=== PATIENT | male | born 1980 | race Caucasian/White ===

== ENCOUNTER 2020-11-11 11:36 | Emergency (ER) | payer OTHER ==
[~2020-11-11] VITALS: Ht 190.5 cm; Wt 150.0 kg
--- NOTE | 2020-11-11 12:15 | NUR ---
Pt refuses to get undressed, he says the [employer] is coming to pick him up soon and they will want him dressed. 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 [employer] had searched him prior to transporting to hospital.
--- NOTE | 2020-11-11 12:32 | NUR ---
Garage doors down, sitter in line of site.
--- NOTE | 2020-11-11 12:43 | NUR ---
TASK RN: LAB AT BEDSIDE.
[2020-11-11 13:06] LABS: BASOPHILS % (AUTO) 1 % (0-1); EOSINOPHILS % (AUTO) 0 % (1-7); LYMPHOCYTES % (AUTO) 13 % (22-44); MEAN CORPUSCULAR HEMOGLOBIN 29.7 pg (27.5-34.5); MEAN CORPUSCULAR HGB CONC 34.2 g/dL (33.2-36.2); MEAN PLATELET VOLUME 9.7 fL (7.4-10.4); MONOCYTES % (AUTO) 8 % (2-9); NEUTROPHILS % (AUTO) 78 % (42-75); PLATELET COUNT 266 x10^3/uL (130-400); RED BLOOD COUNT 5.69 x10^6/uL (4.38-5.82); RED CELL DISTRIBUTION WIDTH 13.8 % (9.4-14.8)
[2020-11-11 13:07] LABS: ALANINE AMINOTRANSFERASE 62 U/L (12-78); ALBUMIN 4.8 g/dL (3.4-5.0); ANION GAP 10 mmol/L (5-15); CALCIUM 9.7 mg/dL (8.5-10.1); CHLORIDE 107 mmol/L (98-107); CREATININE 1.56 mg/dL (0.7-1.3); SALICYLATE LEVEL 1.8 mg/dL (2.8-20.0)
[2020-11-11 13:10] LABS: ALKALINE PHOSPHATASE 86 U/L (45-117); TOTAL PROTEIN 9.4 g/dL (6.4-8.2)
[2020-11-11] MEDS ORDERED: ARIPIPRAZOLE 15 MG TABLET PO SCH (15:00)
[2020-11-11] MEDS ORDERED: BUPROPION SR 100 MG TABLET PO SCH (15:00)
[2020-11-11] MEDS ORDERED: SERTRALINE 50MG TABLET PO SCH (15:00)
[2020-11-11] MEDS ORDERED: SERTRALINE 50MG TABLET ONE (15:06)
[2020-11-11] MEDS ORDERED: ARIPIPRAZOLE 5 MG TABLET ONE (15:06)
--- NOTE | 2020-11-11 15:12 | NUR ---
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 MEAL PROVIDED. SAFETY PRECAUTIONS IN PLACE.
--- NOTE | 2020-11-11 17:10 | NUR ---
Pt resting in bed, safety precautions in place.
--- NOTE | 2020-11-11 17:26 | NUR ---
pt aware of needed urine sample
[2020-11-11 18:45] LABS: AMPHETAMINE SCREEN, URINE Negative (Negative); BARBITURATE SCREEN, URINE Negative (Negative); BENZODIAZEPINE SCREEN, URINE Positive (Negative); CANNABINOID SCREEN, URINE Negative (Negative); COCAINE SCREEN, URINE Negative (Negative); METHADONE SCREEN, URINE Negative (Negative); OPIATE SCREEN, URINE Negative (Negative)
--- NOTE | 2020-11-11 18:47 | NUR ---
BEDSIDE REPORT FROM MATILDA CAPELLAN, TRANSFER OF CARE AT THIS TIME.
--- NOTE | 2020-11-11 20:01 | NUR ---
PT RESTING ON KARLSO ASTORGA RESP EVEN UNLABORED, SITTER IN SIGHT
--- NOTE | 2020-11-11 20:19 | NUR ---
PT PROVIDED BLANKETS HOWEVER PT REMAINS CAUTIOUS AND APPREHENSIVE WITH STAFF ONLY NODS TO RESPOND TO RN
--- NOTE | 2020-11-11 21:10 | NUR ---
PT RESTING ON KARLOS ASTORGA RESP EVEN UNLABORED, SITTER IN SIGHT
--- NOTE | 2020-11-11 22:19 | NUR ---
PT RESTING ON KARLOS ASTORGA RESP EVEN UNLABORED, SITTER IN SIGHT
--- NOTE | 2020-11-11 23:42 | NUR ---
PT SLEEPING ON GURNEY RESP EVEN UNLABORED NO NEEDS AT THIS TIME, SITTER REMAINS IN SIGHT.
--- NOTE | 2020-11-12 00:52 | NUR ---
PT RESTING ON GURKAITLYNN NADN RESP EVEN UNLABORED NO NEEDS AT THIS TIME. SITTER IN SIGHT
--- NOTE | 2020-11-12 01:43 | NUR ---
Packet faxed to [facility]. Self pay.
--- NOTE | 2020-11-12 02:03 | NUR ---
PT RESTING ON GURKAITLYNN NADN RESP EVEN UNLABORED NO NEEDS AT THIS TIME. SITTER IN SIGHT
--- NOTE | 2020-11-12 03:00 | NUR ---
PT RESTING ON GURKAITLYNN NADN RESP EVEN UNLABORED NO NEEDS AT THIS TIME. SITTER IN SIGHT
--- NOTE | 2020-11-12 04:00 | NUR ---
PT RESTING ON GURKAITLYNN NADN RESP EVEN UNLABORED NO NEEDS AT THIS TIME. SITTER IN SIGHT
--- NOTE | 2020-11-12 05:00 | NUR ---
PT RESTING ON GURKAITLYNN NADN RESP EVEN UNLABORED NO NEEDS AT THIS TIME. SITTER IN SIGHT
--- NOTE | 2020-11-12 06:27 | NUR ---
UNABLE TO DO SI REASSESSMENT DUE TO PT ONLY NODDING YES AND NO TO CERTAIN QUESTIONS PT REFUSES VS AT THIS TIME
--- NOTE | 2020-11-12 06:27 | NUR ---
PT RESTING ON GURKAITLYNN NADN RESP EVEN UNLABORED NO NEEDS AT THIS TIME. SITTER IN SIGHT
--- NOTE | 2020-11-12 07:04 | NUR ---
REPORT RECEIVED, CARE ASSUMED. PT SLEEPING IN SECURE ROOM WITH SITTER AT DOOR. MEAL TRAY REQUESTED FROM DIETARY
--- NOTE | 2020-11-12 08:05 | NUR ---
PT MOSTLY SLEEPING. CONT IN SECURE ROOM WITH SITTER AT DOOR.
[2020-11-12] MEDS ORDERED: ARIPIPRAZOLE 5 MG TABLET PO ONE (09:00)
--- NOTE | 2020-11-12 09:00 | NUR ---
PT CONT MOSTLY SLEEPING IN SECURE ROOM WITH SITTER AT DOOR. MEDICATIONS REQUESTED FROM PHARMACY.
[2020-11-12] MEDS ORDERED: SERTRALINE 50MG TABLET ONE (09:46)
[2020-11-12] MEDS: ARIPIPRAZOLE 15 MG TABLET PO SCH (09:51)
[2020-11-12] MEDS: SERTRALINE 50MG TABLET PO SCH (09:51)
--- NOTE | 2020-11-12 09:57 | NUR ---
PT AWAKE IN ROOM, PT TOOK 2 OF 3 MEDICATIONS. PT WITH ONE WORD ANSWERS. IE HOW ARE YOU DOING? "FINE" PT SHOOK HEAD "YES" WHEN ASKED IF WANTED MORE WATER. PT PROVIDED WITH PO FLUIDS AND BREAKFAST. NO OTHER NEEDS EXPRESSED AT THIS TIME. PT CONT IN SECURE ROOM WITH SITTER IN SIGHT.
[2020-11-12] MEDS: BUPROPION SR 100 MG TABLET PO SCH (11:06)
--- NOTE | 2020-11-12 11:08 | NUR ---
PT LAYING ON GURNEY WITH EYES CLOSED. TOOK MEDICATION. GIVEN PO FLUIDS. SHOOK HEAD "NO" WHEN ASKED IF HE WANTS BREAKFAST TRAY REMOVED. "NO, I'LL EAT IT" DENIED NEED TO GO TO BR. DECLINED TO HAVE LIGHTS TURNED ON. CONT IN SECURE ROOM WITH SITTER IN SIGHT.
--- NOTE | 2020-11-12 12:38 | NUR ---
PT CONT IN DARKENED SECURE ROOM. DECLINES TO HAVE ANY LIGHTS ON. PT PROVIDED WITH MEAL TRAY AND PO FLUIDS. NO OTHER NEEDS EXPRESSED AT THIS TIME.
--- NOTE | 2020-11-12 15:08 | NUR ---
pt resting with eyes closed. respirations equal and unlabored.
--- NOTE | 2020-11-12 15:32 | NUR ---
HAD TO CANCEL TRANSPORT TO [facility] DUE TO [facility] NOT HAVING AND NURSES TO ACCEPT PT AT INTAKE AFTER 1600. [facility] WILL ACCEPT PT IN THE MORNING (11/13)
--- NOTE | 2020-11-12 18:24 | NUR ---
pt resting wuth eyes closed. respirations even and unlabored. pt ate dinner and given fluids. secured room with sitter present.
--- NOTE | 2020-11-12 19:53 | NUR ---
PT SLEEPING ON GURNEY. NADN. PSYCH PERCAUTIONS MAINTAINED. SITTER AT BEDSIDE.
--- NOTE | 2020-11-12 21:40 | NUR ---
PT SLEEPING ON GURNEY. NADN. PSYCH PERCAUTIONS MAINTAINED. SITTER AT BEDSIDE.
--- NOTE | 2020-11-12 22:43 | NUR ---
PT SLEEPING ON GURNEY. NADN. PSYCH PERCAUTIONS MAINTAINED. SITTER AT BEDSIDE.
--- NOTE | 2020-11-13 00:14 | NUR ---
PT SLEEPING. NADN. PSYCH PRECAUTIONS MAINTAINED. SITTER AT BEDSIDE.
[2020-11-13] MEDS ORDERED: ZIPRASIDONE 20 MG INJ IM ONE ×2 (00:54→01:00)
--- NOTE | 2020-11-13 01:03 | NUR ---
PT GOT OUT OF BED AND STARTED WALKING AROUND THE HALLWAYS LOOKING FOR AN EXIT. PT WAS REDIRECTED AND ASKED TO PLEASE GO BACK TO HIS ROOM. PT REFUSED. SECURITY CONTACTED. PROVIDER NOTIFIED AND MEDICATION ORDERED. PT WAS ABLE TO BE REDIRECTED BACK TO ROOM WITH SECURITYS HELP. PT LAYING IN BED NOW.
--- NOTE | 2020-11-13 04:01 | NUR ---
PT SLEEPING ON GURNEY. NADN. PSYCH PERCAUTIONS MAINTAINED. SITTER AT BEDSIDE.
--- NOTE | 2020-11-13 06:50 | NUR ---
REPORT FROM FLORES CAPELLAN WITH ASSESSMENT PATIENT BRIEFLY ROUSED FROM SLEEP. PATIENT STATES "EVERYTHING IS COOL RIGHT NOW. PLEASE LET ME SLEEP." ROOM CONTROLLED WITH PSYCHIATRIC PRECAUTIONS.
--- NOTE | 2020-11-13 06:57 | NUR ---
CARE TRANSFERED. REPORT GIVEN TO TIMI TRAN
--- NOTE | 2020-11-13 08:58 | NUR ---
[facility] CALLED, CONNECTED WITH DR LALA FOR PLAN.
--- NOTE | 2020-11-13 09:05 | NUR ---
LAB AT BEDSIDE FOR REPEAT CBC REPEAT VSS PATIENT UPDATED ON ESTIMATED POC
[2020-11-13 09:28] LABS: BASOPHILS % (AUTO) 1 % (0-1); EOSINOPHILS % (AUTO) 3 % (1-7); LYMPHOCYTES % (AUTO) 19 % (22-44); MEAN CORPUSCULAR HGB CONC 34.8 g/dL (33.2-36.2); MEAN PLATELET VOLUME 9.4 fL (7.4-10.4); MONOCYTES % (AUTO) 10 % (2-9); NEUTROPHILS % (AUTO) 68 % (42-75); PLATELET COUNT 186 x10^3/uL (130-400); RED BLOOD COUNT 5.07 x10^6/uL (4.38-5.82); RED CELL DISTRIBUTION WIDTH 13.5 % (9.4-14.8)
--- NOTE | 2020-11-13 09:30 | NUR ---
PLAN FOR [facility] TO COME AT 1000
[2020-11-13 09:37] VITALS: BP 153/72
[2020-11-13] MEDS ORDERED: SERTRALINE 50MG TABLET ONE (09:41)
[2020-11-13] MEDS ORDERED: ARIPIPRAZOLE 10 MG TABLET ONE (09:41)
[2020-11-13] MEDS ORDERED: ARIPIPRAZOLE 5 MG TABLET ONE (09:45)
[2020-11-13] MEDS: ARIPIPRAZOLE 15 MG TABLET PO SCH (09:48)
[2020-11-13] MEDS: SERTRALINE 50MG TABLET PO SCH (09:49)
[2020-11-13] MEDS: BUPROPION SR 100 MG TABLET PO SCH (09:49)
== END 2020-11-13 10:13 ==
LOC: ED 12:00
DX: F20.0 Paranoid schizophrenia (principal); R45.851 Suicidal ideations
CPT/HCPCS: 36415; 80053; 80299; 80307; 80320; 80329; 85025; 96372; 99285; J3486; G0480